=== PATIENT | female | born 2000 ===

== ENCOUNTER 2023-01-09 04:33 | Emergency (ER) | payer BC, MEDICAID ==
[~2023-01-09] VITALS: Ht 162.6 cm; Wt 86.2 kg
[2023-01-09 04:42] VITALS: BP 132/74
--- NOTE | 2023-01-09 04:56 | ED GU-Female ---
General Chief Complaint: Foreign Body Stated Complaint: CONDOM STUCK INSIDE VAGINA Nursing Triage Note: reports condom possibly lost in vagina [id number] Source: patient History of Present Illness Date Seen by Provider: Jan 09, 2023 Time Seen by Provider: 04:42 Initial Comments PT ARRIVES VIA POV FROM HOME WITH BOYFRIEND C/O LOST CONDOM IN VAGINA X 30 MINUTES NO PAIN NO BLEEDING PT IS 20 WEEKS PCP: HERMELINDA-K Allergies and Home Medications Allergies Coded Allergies: No Known Drug Allergies (Unverified , 01/09/23) Patient Home Medication List Home Medication List Reviewed: Yes No Active Prescriptions or Reported Meds Review of Systems Review of Systems Constitutional: no symptoms reported Genitourinary: see HPI : Yes Expected Date of Delivery: May 29, 2023 Past Yfdrolz-Nmatuj-Rifwmq Hx Patient Social History Tobacco Use?: Yes Tobacco type used: Cigarettes Use of E-Cig and/or Vaping dev: Yes E-Cig or Vaping type used: Nicotine Use of E-Cig and/or Vaping Balwinder: Current Everyday User Substance use?: Yes Substance type: Marijuana Substance frequency: Daily Alcohol Use?: Yes Alcohol Frequency: Once in a while Pt feels they are or have been: No Immunizations Up To Date First/Initial COVID19 Vaccinat: x2 Past Medical History Surgery/Hospitalization HX: denies Surgeries: No Respiratory: No Cardiac: No Neurological: No : Yes Expected Date of Delivery: May 29, 2023 Last Menstrual Period: Aug 22, 2022 Reproductive Disorders: No Genitourinary: No Gastrointestinal: No Musculoskeletal: No Endocrine: No HEENT: No Cancer: No Psychosocial: No Integumentary: No Blood Disorders: No Physical Exam Vital Signs Vital Signs - First Documented 01/09/23 04:42 Temp 36.4 Pulse 78 Resp 14 B/P (MAP) 132/74 (93) Pulse Ox 98 O2 Delivery Room Air Capillary Refill : Less Than 3 Seconds Height, Weight, BMI Height: '" Weight: lbs. oz. kg; 32.00 BMI Method: General Appearance: WD/WN, no apparent distress Gastrointestinal: soft, other (GRAVID UTERUS AT UMBILICUS) Pelvic: other (CONDOM IN VAGINAL CANAL EASILY REMOVED WITH LARGE COTTON SWAB. NO BLEEDING OR EVIDENCE OF TRAUMA. ) Neurologic/Psychiatric: no motor/sensory deficits, normal mood/affect Skin: normal color (PT IS ), warm/dry Progress/Results/Core Measures Suspected Sepsis SIRS Temperature: Pulse: 78 Respiratory Rate: 14 Blood Pressure 132 /74 Mean: 93 Results/Orders Vital Signs/I&O 01/09/23 04:42 Temp 36.4 Pulse 78 Resp 14 B/P (MAP) 132/74 (93) Pulse Ox 98 O2 Delivery Room Air Capillary Refill : Less Than 3 Seconds Blood Pressure Mean: 93 Progress Note : Progress Note FHR 147 Departure Impression Primary Impression: removal of retained condom Additional Impression: 20 weeks gestation of Disposition: 01 HOME, SELF-CARE Condition: Stable Departure-Patient Inst. Decision time for Depature: 04:55 Referrals: NO,LOCAL PHYSICIAN (PCP/Family) Primary Care Physician Patient Instructions: Vaginal Foreign Body Add. Discharge Instructions: FOLLOW UP WITH YOUR ROTARY DRILL OPERATOR SCHEDULED All discharge instructions reviewed with patient and/or family. Voiced understanding. Scripts No Active Prescriptions or Reported Meds ABIOLA HANSEN DO Jan 09, 2023 04:56
== END 2023-01-09 04:58 | disposition home or self-care (01) ==
LOC: EDUNIT# 04:33 → ER 04:41
DX: O9A.212 Injury, poisoning and certain other consequences of external causes complicating pregnancy, second trimester (principal); T19.2XXA Foreign body in vulva and vagina, initial encounter; O99.332 Smoking (tobacco) complicating pregnancy, second trimester; F17.210 Nicotine dependence, cigarettes, uncomplicated; Z3A.20 20 weeks gestation of pregnancy

== ENCOUNTER 2023-05-17 18:29 | Inpatient (IN) | payer BC, MEDICAID ==
[~2023-05-17] VITALS: Ht 162.5 cm; Wt 104.6 kg
[2023-05-17] VITALS (9 sets, daily range): BP systolic 119–145; BP diastolic 62–88
--- OUTSIDE RECORDS SUMMARY | 2023-05-17 18:31 | XMS REPORT ---
Author Author [facility] ter of [facility] ter of [facility] Address Unknown Phone Unavailable Care Team Providers Care Fuel Efficient Automobile Designer Name Role Phone LESLIE LOWRY Unavailable PROBLEMS Type Condition ICD9-CM Code [id number] Code Onset Dates Condition Status W/U Status Risk SNOMED Code Notes Problem care in second trimester Z34.92 confirmed ALLERGIES No Known Allergies ENCOUNTERS from 2000 to 2022-12-30 Encounter Location Date Provider Diagnosis [facility] [address] [facility] [id number] [address] Dec, LESLIE LOWRY Possible exposure to STD Z20.2 IMMUNIZATIONS Vaccine Route Administration Date Status PRIVATE TDAP (ADACEL) Unknown November 03, 2012 Admini stered prevnar pcv 7 (history) Unknown 2000 Ad ministered prevnar pcv 7 (history) Unknown 2000 Admi nistered PRIVATE HEP A (PEDS/ADOLESCE NT-2 DOSE) Unknown January 12, 2007 Administered 1st Dose HRSA MODERNA, COVID -19, 0.5mL IM Intramuscular September 17, 2020 Administered 2nd Dose HRSA MODERNA, COVID -19, 0.5mL IM Intramuscular October 15, 2020 Administered PRIVATE BEXSERO (MEN B) IM Intramuscular Jul 07, 2017 Administered PRIVATE MENINGOCOCCAL (MENACTRA) Unknown November 03, 2012 Administered PRIVATE DTAP (INFANRIX) Unknown 2000 Admi nistered PRIVATE VARICELLA Unknown January 12, 2007 Administe red PRIVATE VARICELLA Unknown October 29, 2005 Administer ed PRIVATE POLIO (IPV) Unknown 2000 Admini stered PRIVATE POLIO (IPV) Unknown 2000 Administ ered GARDASIL (HPV-3 DOSE) Unknown November 03, 2012 Admini stered PRIVATE MMR Unknown October 29, 2005 Administered PRIVATE MMR Unknown Jul 14, 2001 Administered PRIVATE HEP B (PEDS/ADOLESCE NT, 3-DOSE) Unknown 2000 Administered PRIVATE HEP B (PEDS/ADOLESCE NT, 3-DOSE) Unknown 2000 Administered PRIVATE HEP B (PEDS/ADOLESCE NT, 3-DOSE) Unknown 2000 Administered GARDASIL (HPV-3 DOSE) IM Intramuscular November 20, 2015 Ad ministered prevnar pcv 7 (history) Unknown 2000 Adm inistered PRIVATE MENINGOCOCCAL (MENVEO) IM Intramuscular October Administered hib (history) Unknown 2000 Administered GARDASIL (HPV-3 DOSE) Unknown May 03, 2015 Admini stered hib (history) Unknown 2000 Administered hib (history) Unknown 2000 Administered PRIVATE DTAP (INFANRIX) Unknown October 29, 2005 Admi nistered PRIVATE POLIO (IPV) Unknown Jul 14, 2001 Administ ered PRIVATE DTAP (INFANRIX) Unknown Aug 17, 2002 Admi nistered PRIVATE POLIO (IPV) Unknown October 29, 2005 Administ ered PRIVATE DTAP (INFANRIX) Unknown 2000 Adm inistered PRIVATE HEP A (PEDS/ADOLESCE NT-2 DOSE) Unknown November 03, 2012 Administered PRIVATE DTAP (INFANRIX) Unknown 2000 Ad ministered hib (history) Unknown Jul 14, 2001 Administered PRIVATE BEXSERO (MEN B) IM Intramuscular Jun 02, 2017 Administered FLUARIX QUAD (3 AND UP) 2017 IM Intramuscular Jun 02, 2017 Administered SOCIAL HISTORY Sex Assigned At : Social History Observation Description Sex Assigned At Unknown Alcohol Screen (Audit-C) Question Answer Notes Did you have a drink containing alcohol in the p ast year? No Points 0 Interpretation Negative Sexual History Question Answer Notes Had sex in the past 12 months (vaginal, oral, or anal)? Yes Last menstrual period 08/14/2022 Have you ever had a Sexually transmitted disease ? Yes Prevention strategies discussed: Condoms with Men only Use protection? No Other? Yes PHQ2 Question Answer Notes In the last 2 weeks, how oft en have you had little interest or pleasure in doing things? Not at all In the last 2 weeks, how oft en have you been feeling down, depressed, or hopeless? Not at all Total PHQ2 Score 0 REASON FOR REFERRAL No Information VITAL SIGNS Height 64 in Dec, Weight 190.6 lbs Dec, Weight-kg 86.45 kg Dec, Temperature 98.3 degrees Fahrenheit Dec, Heart Rate 87 bpm Dec, Respiratory Rate 18 bpm Dec, Oximetry 99 % Dec, BMI 32.71 kg/m2 Dec, Blood pressure systolic 115 mmHg Dec, Blood pressure diastolic 60 mmHg Dec, MEDICATIONS Medication SIG (Take, Route, Fr equency, Duration) Notes Start Date End Date Status 28-0.8 MG 1 tablet Orally Once a day Active PROCEDURES from 2000 to 2022-12-30 Procedure Date Ordered Date Performed Result Body Sit e ROUTINE VENIPUNCTURE 2021-01-20 2021-01-20 N/A REASON FOR VISIT STD check mild vaginal bleeding and burning sensation x 1 week after intercourse. Pt would like test. No symptoms at this time. ANJEL ELKINS MEDICAL (GENERAL) HISTORY Type Description Date Medical History fx toe in elementary school after kicking wall on accident Hospitalization History RSV 6 weeks old MENTAL STATUS No Information ASSESSMENTS Encounter Date Diagnosis Assessment Notes Treatment Notes Treatment Clinical Notes Dec, Possible exposure to STD (ICD-10 - Z20.2) PLAN OF TREATMENT Next Appt Details prn Reason: Provider Name:ANDER MULLEN, Thea 10:20:00 AM, [address] [place], [address], Provider Name:ANDER MULLEN, Thea 09:00:00 AM, [address] [place], [address], Insurance Providers Payer Name Payer Address Payer Phone Insured Name Patient Relationship to Insured Coverage Start Date Coverage End Date Subscriber Number Group Number BCBS OF [place] [address] [place] [id number] Billie White Natural Child - Insured has Financial Responsibility [id number] [place] [address] [address] [facility] [phone] Pratik White Self - patient is the insured [id number] MEDICATIONS ADMINISTERED Medication Instructions Date of Administration Dosag e BICILLIN LA/PENICILLIN G BENZATHINE 24 Ap r, 2015 [id number] U
--- OUTSIDE RECORDS SUMMARY | 2023-05-17 18:31 | XMS REPORT ---
Author Author [facility] ter of [facility] ter [facility] Address Unknown Phone Unavailable Care Team Providers Care First Officer Name Role Phone LESLIE LOWRY Unavailable PROBLEMS ALLERGIES No Known Allergies ENCOUNTERS from 2000 to 2023-01-03 IMMUNIZATIONS SOCIAL HISTORY No smoking Hx information available REASON FOR REFERRAL No Information MEDICATIONS REASON FOR VISIT MEDICAL (GENERAL) HISTORY MENTAL STATUS ASSESSMENTS PLAN OF TREATMENT Insurance Providers MEDICATIONS ADMINISTERED
--- OUTSIDE RECORDS SUMMARY | 2023-05-17 18:31 | XMS REPORT ---
Author Author [facility] ter of [facility] ter of [facility] Address Unknown Phone Unavailable Care Team Providers Care Tie Carrier Name Role Phone YU FOSTER Unavailable PROBLEMS Type Condition ICD9-CM Code [id number] Code Onset Dates Condition Status W/U Status Risk SNOMED Code Notes Problem Herpesviral infection, unspecified B00.9 confirmed [id number] No active lesions during pregnanc y ALLERGIES No Known Allergies ENCOUNTERS from 2000 to 2023-04-14 Encounter Location Date Provider Diagnosis [facility] [address] [facility] [id number] [address] Mar, YU FOSTER Stuffy and runny nose J34.89 IMMUNIZATIONS Vaccine Route Administration Date Status prevnar pcv 7 (history) Unknown 2000 Admi nistered PRIVATE HEP A (PEDS/ADOLESCE NT-2 DOSE) Unknown January 12, 2007 Administered PRIVATE VARICELLA Unknown January 12, 2007 Administe red PRIVATE VARICELLA Unknown October 29, 2005 Administer ed 1st Dose HRSA MODERNA, COVID -19, 0.5mL IM Intramuscular September 17, 2020 Administered PRIVATE MENINGOCOCCAL (MENACTRA) Unknown November 03, 2012 Administered PRIVATE TDAP (ADACEL) Unknown November 03, 2012 Admini stered prevnar pcv 7 (history) Unknown 2000 Ad ministered PRIVATE MENINGOCOCCAL (MENVEO) IM Intramuscular October Administered PRIVATE DTAP (INFANRIX) Unknown October 29, 2005 Admi nistered PRIVATE DTAP (INFANRIX) Unknown Aug 17, 2002 Admi nistered PRIVATE POLIO (IPV) Unknown October 29, 2005 Administ ered PRIVATE HEP A (PEDS/ADOLESCE NT-2 DOSE) Unknown November 03, 2012 Administered prevnar pcv 7 (history) Unknown 2000 Adm inistered hib (history) Unknown 2000 Administered hib (history) Unknown 2000 Administered hib (history) Unknown 2000 Administered hib (history) Unknown Jul 14, 2001 Administered 2nd Dose HRSA MODERNA, COVID -19, 0.5mL IM Intramuscular October 15, 2020 Administered PRIVATE DTAP (INFANRIX) Unknown 2000 Adm inistered GARDASIL (HPV-3 DOSE) Unknown November 03, 2012 Admini stered GARDASIL (HPV-3 DOSE) Unknown May 03, 2015 Admini stered PRIVATE MMR Unknown October 29, 2005 Administered GARDASIL (HPV-3 DOSE) IM Intramuscular November 20, 2015 Ad ministered PRIVATE MMR Unknown Jul 14, 2001 Administered PRIVATE TDAP (BOOSTRIX) IM Intramuscular Mar 11, 2023 Administered PRIVATE HEP B (PEDS/ADOLESCE NT, 3-DOSE) Unknown 2000 Administered PRIVATE FLU 23-24 (FLULAVAL) 6MO & UP IM Intramuscular Mar 11, 2023 Administered PRIVATE DTAP (INFANRIX) Unknown 2000 Ad ministered PRIVATE POLIO (IPV) Unknown Jul 14, 2001 Administ eregraham FLUARIX QUAD (3 AND UP) 2017 IM Intramuscular Jun 02, 2017 Administered PRIVATE POLIO (IPV) Unknown 2000 Admini steregraham PRIVATE BEXSERO (MEN B) IM Intramuscular Jun 02, 2017 Administered PRIVATE POLIO (IPV) Unknown 2000 Administ eregraham PRIVATE BEXSERO (MEN B) IM Intramuscular Jul 07, 2017 Administered PRIVATE HEP B (PEDS/ADOLESCE NT, 3-DOSE) Unknown 2000 Administered PRIVATE HEP B (PEDS/ADOLESCE NT, 3-DOSE) Unknown 2000 Administered PRIVATE DTAP (INFANRIX) Unknown 2000 Admi nistered SOCIAL HISTORY Sex Assigned At : Social [...] Score 0 REASON FOR REFERRAL No Information MEDICATIONS Medication SIG (Take, Route, Fr equency, Duration) Notes Start Date End Date Status 28-0.8 MG 1 tablet Orally Once a day Active Acyclovir 400 MG 1 tablet Orally Twic e a day for 30 days Mar, Active REASON FOR VISIT [id number] [id number] MEDICAL (GENERAL) HISTORY Type Description Date Medical History fx toe in elementary school after kicking wall on accident Hospitalization History RSV 6 weeks old MENTAL STATUS No Information ASSESSMENTS Encounter Date Diagnosis Assessment Notes Treatment Notes Treatment Clinical Notes Mar, Stuffy and runny nose (ICD-10 - J34.89) Mar, Other Patient was instructed to self-isolate at home until further instruction from clinic staff PLAN OF TREATMENT Medication Medication Name Sig Start Date Stop Date Acyclovir 400 MG 1 tablet Orally Twice a day for 30 da ys Mar, Next Appt Details Provider Name:ANDER MULLEN 2 02:00:00 PM, [address] [place], [address], Provider Name:ANDER MULLEN 11:00:00 AM, [address] [place], [address], Provider Name:ANDER MULLEN 11:00:00 AM, [address] [place], [address], Provider Name:ANDER MULLEN 2 10:40:00 AM, [address] [place], [address], Provider Name:ANDER MULLEN 2 02:00:00 PM, [address] [place], [address], Insurance Providers Payer Name Payer Address Payer Phone Insured Name Patient Relationship to Insured Coverage Start Date Coverage End Date Subscriber Number Group Number [employer] OF [place] [id number] [place] [id number] Billie White Natural Child - Insured has Financial Responsibility [id number] [place] [address] [address] [facility] [phone] Pratik White Self - patient is the insured [id number] MEDICATIONS ADMINISTERED Medication Instructions Date of Administration Dosag e BICILLIN LA/PENICILLIN G BENZATHINE 24 Ap r, 2016 [id number] U
[2023-05-17] MEDS ORDERED: MINERAL OIL 30 ML UDC TOP PRN (19:00)
[2023-05-17] MEDS ORDERED: LACTATED RINGERS 1,000 ML 500 ML IV PRN (19:00)
[2023-05-17 19:39] LABS: BASOPHILS # (AUTO) 0.1 10^3/uL (0.0-0.1); BASOPHILS % (AUTO) 1 % (0-10); EOSINOPHILS # (AUTO) 0.1 10^3/uL (0.0-0.3); EOSINOPHILS % (AUTO) 1 % (0-10); HEMATOCRIT 40 % (35-52); HEMOGLOBIN 13.7 g/dL (11.5-16.0); LYMPHOCYTES # (AUTO) 1.8 10^3/uL (1.0-4.0); LYMPHOCYTES % (AUTO) 10 % (12-44); MEAN CORPUSCULAR HEMOGLOBIN 32 pg (25-34); MEAN CORPUSCULAR HGB CONC 35 g/dL (32-36); MEAN CORPUSCULAR VOLUME 94 fL (80-99); MEAN PLATELET VOLUME 10.5 fL (9.0-12.2); MONOCYTES # (AUTO) 1.4 10^3/uL (0.0-1.0); MONOCYTES % (AUTO) 8 % (0-12); NEUTROPHILS # (AUTO) 13.2 10^3/uL (1.8-7.8); NEUTROPHILS % (AUTO) 76 % (42-75); PLATELET COUNT 242 10^3/uL (130-400); WHITE BLOOD COUNT 17.2 10^3/uL (4.3-11.0)
[2023-05-17] MEDS ORDERED: NS IV 1000 ML 0 ML ONE (19:52)
[2023-05-17] MEDS ORDERED: LACTATED RINGERS 1,000 ML 1,000 ML IV ONE (19:54)
[2023-05-17] MEDS ORDERED: LACTATED RINGERS 1,000 ML 1,000 ML IV SCH (20:15)
[2023-05-17] MEDS ORDERED: TERBUTALINE INJ 1 MG/ML (BRETHINE) AMP SC PRN (20:15)
[2023-05-17 20:20] LABS: LYMPHOCYTES % (MANUAL) 14 %; MONOCYTES % (MANUAL) 9 %; NEUTROPHILS % (MANUAL) 76 %
[2023-05-17 20:21] LABS: BURR CELLS SLIGHT; EOSINOPHILS % (MANUAL) 1 %
[2023-05-17] MEDS: D5 LR 1,000 ML IV SOLN 1,000 ML IV SCH (20:42)
[2023-05-17] MEDS ORDERED: BUTORPHANOL INJ 2 MG/ML VIAL IV PRN (21:15)
[2023-05-17] MEDS ORDERED: ACYC400T21 PO (23:42)
[2023-05-17] MEDS ORDERED: PNV-9 PO (23:43)
[2023-05-18] VITALS (107 sets, daily range): BP systolic 81–153; BP diastolic 46–82
[2023-05-18] MEDS: D5 LR 1,000 ML IV SOLN 1,000 ML IV SCH ×3 (04:27→20:10)
[2023-05-18] MEDS ORDERED: fentaNYL 2 mcg/ml BUPIVA 0.125 100 ML ONE (09:07)
[2023-05-18] MEDS ORDERED: fentaNYL INJECTION 100 MCG/2 ML VIAL ONE (10:14)
[2023-05-18] MEDS ORDERED: BUPIVACAINE 0.25% 10 ML VIAL ONE (10:15)
[2023-05-18] MEDS ORDERED: NALOXONE 0.4 MG/ML 1 ML VIAL IV PRN ×2 (10:45→23:45)
[2023-05-18] MEDS ORDERED: diphenhydrAMINE INJ 50 MG/ML VIAL IV PRN (10:45)
[2023-05-18] MEDS ORDERED: LACTATED RINGERS 1,000 ML 1,000 ML IV SCH (10:45)
--- NOTE | 2023-05-18 10:51 | History & Physical-OB ---
OB - Chief Complaint & HPI Date/Time Date of Admission: Date of Admission: May 17, 2023 at 18:29 Date seen by a Provider: May 18, 2023 Time Seen by a Provider: 08:30 Chief Complaint/History OB-Reason for Admission/Chief: Induction of Labor Hx : 1 Hx Para: 0 Expected Date of Delivery: May 21, 2023 Gestational Age in Weeks: 39 Gestational Age in Days: 3 History of Labs O+, Ab neg, Rub Imm HIV/RPR/HepB/C NR Normal 1 hr GTT GBS Neg Allergies and Home Medications Allergies Coded Allergies: No Known Drug Allergies (Unverified , 01/09/23) Patient Home Medication List Home Medication List Reviewed: Yes Acyclovir (Acyclovir) 400 Mg Tablet, 400 MG PO BID, (Reported) Entered as Reported by: BATOOL ÁLVAREZ on 05/17/232341 Last Action: New Order Pnv 119/Iron Fum/Folic Acid ( 19 Tablet) 29 Mg Iron-1 Mg Tablet, 1 EACH PO DAILY, (Reported) Entered as Reported by: BATOOL ÁLVAREZ on 05/17/232342 Last Action: New Order OB - History Hx of Present Ultrasounds: Normal mid trimester US Obstetrical Complications: None Medical Complications: None Obstetrical History Hx : 1 Patient Past Medical History N/A Social History/Family History Alcohol Use: Denies Use Recreational Drug Use: No Smoking Cessation: Never smoker Immunizations Influenza Vaccine Up-to-Date: Yes; Up-to-Date First/Initial COVID19 Vaccine: x2 Tetanus Booster (TDap): Less than 5yrs Rubella: immune RPR/VDRL: Negative GBS Status: Negative HBsAG: Negative OB - Admission Exam Physical Exam Vitals: Vital Signs 05/18/23 05/18/23 04:57 07:25 Temp 37.3 Pulse 86 Resp 18 B/P (MAP) 121/66 (84) Pulse Ox 99 O2 Delivery Room Air HEENT: NCAT Heart: Rhythm Normal Lungs: Clear Abdomen: Gravid Cervical Dilatation: 4cm Effacement: 75% Station: -1 Membranes: Intact Heart Rate: 140's Accelerations: Accelerations Present Decelerations: No Decelerations Short Term Variability: Present Detention Variability: Average (6-25) Contractions on Admission: 6-10 Minutes Apart Intensity: Moderate Lyon Scoring Tool (Modified) Dilation (cm): 1-2cm (1) Effacement (%): 51-79% (2) Descent/Station: -2 (1) Cervix Consistency: Medium(1) Cervix Position: Middle/Mid-Position (1) Lyon Score: 6 Labs Laboratory Tests Test 05/17/23 19:20 Range/Units White Blood Count 17.2 H 4.3-11.0 10^3/uL Red Blood Count 4.23 3.80-5.11 10^6/uL Hemoglobin 13.7 11.5-16.0 g/dL Hematocrit 40 35-52 % Mean Corpuscular Volume 94 80-99 fL Mean Corpuscular Hemoglobin 32 25-34 pg Mean Corpuscular Hemoglobin Concent 35 32-36 g/dL Red Cell Distribution Width 14.6 H 10.0-14.5 % Platelet Count 242 130-400 10^3/uL Mean Platelet Volume 10.5 9.0-12.2 fL Immature Granulocyte % (Auto) 4 % Neutrophils (%) (Auto) 76 H 42-75 % Lymphocytes (%) (Auto) 10 L 12-44 % Monocytes (%) (Auto) 8 0-12 % Eosinophils (%) (Auto) 1 0-10 % Basophils (%) (Auto) 1 0-10 % Neutrophils # (Auto) 13.2 H 1.8-7.8 10^3/uL Lymphocytes # (Auto) 1.8 1.0-4.0 10^3/uL Monocytes # (Auto) 1.4 H 0.0-1.0 10^3/uL Eosinophils # (Auto) 0.1 0.0-0.3 10^3/uL Basophils # (Auto) 0.1 0.0-0.1 10^3/uL Immature Granulocyte # (Auto) 0.7 H 0.0-0.1 10^3/uL Neutrophils % (Manual) 76 % Lymphocytes % (Manual) 14 % Monocytes % (Manual) 9 % Eosinophils % (Manual) 1 % Macrocytosis SLIGHT Rishi Cells SLIGHT Syphilis Total Antibody Negative Negative OB - Assessment/Plan/Diagnosis Assessment Assessment: induction of labor Admission Dx Third Trimester 39 week gestation Obesity in Admission Status: Inpatient Order (span 2 midnights) Reason for Inpatient Admission: Labor and post care Plan Other Plan 22 yo @ 39.3 wga here for elective IOL Plan - Risks vs Benefits discussed with patient in office and upon arrival and pa darius would like to proceed with elective IOL - GBS neg - Cytotec IOL - AROM this AM 0830 clear /-1 ANDER MULLEN MD May 18, 2023 10:51
[2023-05-18] MEDS ORDERED: OXYTOCIN DRIP PRE-MIX 500 ML IV SCH (12:45)
[2023-05-18] MEDS: fentaNYL 2 mcg/ml BUPIVA 0.125 100 ML EPI SCH ×2 (17:57→19:10)
--- NOTE | 2023-05-18 19:22 | Labor Progress Note ---
Labor Progress Note Labor Progress Note Date Seen by Provider: May 18, 2023 Time Seen by Provider: 19:20 Subjective: Pt denies complaints. Epidural in place with good pain control Objective: /-1 Ruptured, clear fluid Reactive FHT Assessment/Plan: Adela White is a (22 /Para 1 / 0,Gestational Age (wks)39.3 here for elective IOL. CEFM/TOCO Continue pitocin protocol Anesthesia: Epidural in place Anticipate vaginal delivery. Vitals - Labs Vital Signs - I&O Vital Signs Date Time Temp Pulse Resp B/P (MAP) Pulse Ox O2 Delivery O2 Flow Rate FiO2 05/18/23 18:55 95 18 126/58 (80) 97 Room Air 05/18/23 18:40 36.9 80 18 118/59 (78) 98 Room Air 05/18/23 18:25 83 18 111/61 (78) 97 Room Air 05/18/23 18:10 88 18 123/58 (79) 98 Room Air 05/18/23 17:55 93 18 113/59 (77) 98 Room Air 05/18/23 17:42 117 18 129/64 (85) 99 Room Air 05/18/23 17:25 85 18 116/68 (84) 98 Room Air 05/18/23 17:10 87 18 116/55 (75) 98 Room Air 05/18/23 16:54 79 18 118/59 (78) 97 Room Air 05/18/23 16:38 73 18 117/59 (78) 98 Room Air 05/18/23 16:23 83 18 126/65 (85) 98 Room Air 05/18/23 16:15 75 18 115/58 (77) 99 Room Air 05/18/23 16:10 72 18 116/59 (78) 99 Room Air 05/18/23 16:05 77 18 121/63 (82) 99 Room Air 05/18/23 16:00 79 18 122/63 (82) 99 Room Air 05/18/23 15:55 85 18 119/59 (79) 99 Room Air 05/18/23 15:45 36.9 76 18 111/55 (73) 98 Room Air 05/18/23 15:30 75 18 101/56 (71) 98 Room Air 05/18/23 15:15 75 18 109/59 (76) 99 Room Air 05/18/23 15:00 75 18 105/55 (72) 99 Room Air 05/18/23 14:45 67 18 99/55 (70) 97 Room Air 05/18/23 14:30 68 18 103/52 (69) 99 Room Air 05/18/23 14:15 37.1 71 18 97/53 (68) 99 Room Air 05/18/23 14:00 70 18 98/52 (67) 99 Room Air 05/18/23 13:45 69 18 102/53 (69) 98 Room Air 05/18/23 13:30 74 18 116/60 (78) 99 Room Air 05/18/23 13:15 75 18 115/58 (77) 99 Room Air 05/18/23 13:00 82 18 122/64 (83) 99 Room Air 05/18/23 12:56 78 18 123/58 (79) 98 Room Air 05/18/23 12:52 75 18 114/58 (76) 98 Room Air 05/18/23 12:48 72 18 114/58 (76) 98 Room Air 05/18/23 12:44 74 18 117/57 (77) 98 Room Air 05/18/23 12:40 72 18 112/58 (76) 98 Room Air 05/18/23 12:36 71 18 116/60 (78) 99 Room Air 05/18/23 12:32 37.0 81 18 118/60 (79) 99 Room Air 05/18/23 12:28 74 18 115/55 (75) 99 Room Air 05/18/23 12:24 81 18 112/57 (75) 99 Room Air 05/18/23 12:20 80 18 110/57 (74) 99 Room Air 05/18/23 12:15 72 18 115/56 (75) 98 Room Air 05/18/23 12:11 76 18 121/56 (77) 98 Room Air 05/18/23 12:04 70 18 106/56 (73) 97 Room Air 05/18/23 12:00 78 18 107/58 (74) 97 Room Air 05/18/23 11:56 100 18 113/58 (76) 98 Room Air 05/18/23 11:52 78 18 107/58 (74) 98 Room Air 05/18/23 11:48 88 18 107/59 (75) 96 Room Air 05/18/23 11:44 75 18 104/58 (73) 96 Room Air 05/18/23 11:40 36.9 73 18 99/56 (70) 98 Room Air 05/18/23 11:36 78 18 106/55 (72) 98 Room Air 05/18/23 11:32 60 18 81/46 (58) 94 Room Air 05/18/23 11:28 90 18 107/62 (77) 98 Room Air 05/18/23 11:24 86 18 94/50 (65) 98 Room Air 05/18/23 11:20 81 18 104/58 (73) 96 Room Air 05/18/23 11:16 87 18 90/53 (65) 94 Room Air 05/18/23 11:12 84 18 98/56 (70) 97 Room Air 05/18/23 11:08 92 18 97/54 (68) 96 Room Air 05/18/23 11:04 87 18 100/54 (69) 96 Room Air 05/18/23 11:00 82 18 94/55 (68) 98 Room Air 05/18/23 10:56 104 18 127/69 (88) 98 Room Air 05/18/23 10:52 95 18 118/59 (78) 98 Room Air 05/18/23 10:48 93 18 123/61 (81) 98 Room Air 05/18/23 10:44 36.6 90 18 120/60 (80) 99 Room Air 05/18/23 10:40 110 18 133/71 (91) 99 Room Air 05/18/23 10:36 99 18 123/68 (86) 99 Room Air 05/18/23 10:32 96 18 123/70 (87) 99 Room Air 05/18/23 10:28 101 18 125/68 (87) 99 Room Air 05/18/23 10:23 95 18 130/72 (91) 100 Room Air 05/18/23 10:18 96 18 134/70 (91) Room Air 05/18/23 10:04 85 18 110/69 (83) Room Air 05/18/23 09:47 89 18 115/66 (82) 99 Room Air 05/18/23 09:32 82 18 122/72 (89) 99 Room Air 05/18/23 09:16 88 18 128/64 (85) 99 Room Air 05/18/23 08:55 88 18 118/66 (83) 99 Room Air 05/18/23 08:25 96 18 120/67 (84) 99 Room Air 05/18/23 08:00 98 18 119/59 (79) 98 Room Air 05/18/23 07:25 86 18 121/66 (84) 99 Room Air 05/18/23 06:56 92 18 124/62 (82) 97 Room Air 05/18/23 06:26 87 18 120/67 (84) 96 Room Air 05/18/23 05:56 79 18 103/53 (70) 98 Room Air 05/18/23 05:26 79 18 108/51 (70) 98 Room Air 05/18/23 04:57 37.3 81 18 121/60 (80) 99 Room Air 05/18/23 04:29 37.3 83 18 122/70 (87) 98 Room Air 05/18/23 03:56 74 18 101/51 (68) 98 Room Air 05/18/23 03:26 75 18 98/57 (71) 97 Room Air 05/18/23 02:56 94 18 109/64 (79) 99 Room Air 05/18/23 02:25 85 18 122/60 (80) 97 Room Air 05/18/23 01:57 91 18 121/67 (85) 98 Room Air 05/18/23 01:27 88 18 118/66 (83) 99 Room Air 05/18/23 00:55 36.2 94 18 132/67 (88) 99 Room Air 05/18/23 00:27 93 18 119/67 (84) 98 Room Air 05/17/23 23:56 100 18 124/64 (84) 98 Room Air 05/17/23 23:27 96 18 119/62 (81) Room Air 05/17/23 22:57 94 18 124/65 (84) Room Air 05/17/23 22:27 37.4 93 18 119/66 (83) 98 Room Air 05/17/23 21:57 92 18 122/65 (84) 99 Room Air 05/17/23 21:25 99 18 137/63 (87) 97 Room Air 05/17/23 20:56 96 18 145/88 (107) 99 Room Air 05/17/23 20:04 36.1 91 18 124/79 (94) 98 Room Air I & O 05/18/23 06:59 Intake Total 2000 ml Balance 2000 ml ANDER MULLEN MD May 18, 2023 19:21
[2023-05-18] MEDS ORDERED: ACETAMINOPHEN 500 MG TABLET ONE (20:19)
[2023-05-18] MEDS: ONDANSETRON INJECTION 4 MG/2 ML (SDV) IV PRN (20:24)
[2023-05-18] MEDS ORDERED: ACETAMINOPHEN 500 MG TABLET PO ONE (20:30)
[2023-05-18] MEDS: CATHETER FLUSH 10 ML SYR IV SCH (22:11)
[2023-05-18] MEDS ORDERED: LIDOCAINE 2% w/EPI 1:200,000 20 ML VIAL INJ PRN (23:00)
[2023-05-18] MEDS ORDERED: LIDOCAINE 2% w/EPI 1:200,000 20 ML VIAL ONE (23:01)
[2023-05-18] MEDS ORDERED: [UNRECOGNIZED DRUG - OTHER] IV ONE (23:02)
[2023-05-18] MEDS ORDERED: METHYLERGONOVINE INJ 0.2 MG/ML AMP ONE (23:02)
[2023-05-18] MEDS: OXYTOCIN DRIP PRE-MIX 500 ML IV SCH ×2 (23:33→23:57)
[2023-05-18] MEDS ORDERED: METHYLERGONOVINE INJ 0.2 MG/ML AMP IM ONE (23:45)
[2023-05-19] MEDS ORDERED: WITCH HAZEL(TUCKS) 40 EA JAR TOP PRN
[2023-05-19] MEDS ORDERED: Tetanus/Diphtheria/Pertussis (Acell) ADULT Vaccine 0.5 ML IM ONE
[2023-05-19] MEDS ORDERED: ACETAMINOPHEN 500 MG TABLET PO SCH
[2023-05-19] MEDS ORDERED: BENZOCAINE/MENTHOL (DERMOPLAST) 56 ML CAN TP PRN
[2023-05-19] MEDS ORDERED: MEASLES, MUMPS, RUBELLA VACCINE (MMR) SQ ONE
[2023-05-19 00:08] VITALS: BP 115/77
--- NOTE | 2023-05-19 00:17 | OB Labor & Delivery Record ---
Vag Delivery Note Vag Delivery Note Date of Delivery: 05/19/23 Preoperative Diagnosis: Adela White is a (22 /Para 1 / 0, Gestational Age (wks)39.3 wga here for elective IOL Postoperative Diagnosis: Same Attending Surgeon/Physician: Ander Jeronimo MD Aircraft Engine Technician: None Anesthesia: Epidural Delivery Type: @ 2327 Findings: Viable female infant, apgars 8/9, weight [] Lacerations: 2nd degree perineal laceration Intact placenta with 3 vessel cord. No nuchal cord, body cord or shoulder dystocia Estimated Blood Loss: 200 ml Complications: None Condition: Stable Description of Procedure: The patient is a 22 year old female who presented for elective IOL. She was admitted and informed consent was obtained. Her labor course was remarkable pitocin augmentation. She progressed to complete dilatation and began to push. She was then set up for delivery. The 's head was delivered atraumatically in the JOE position. The shoulders and remainder of the 's body were then delivered without difficulty. Upon delivery, the infant was vigorous and placed on maternal chest and the mouth and nares were bulb suctioned. After a 3 min delay cord was doubly clamped and cut by FOB and the infant remained on maternal chest. An intact placenta with 3-vessel cord delivered via Rani and there was found to be minimal bleeding.~ Vigorous fundal massage was performed and the fundus was found to be firm. IV oxytocin was given. Examination of the vagina and perineum revealed a 2nd degree laceration repaired in the usual fashion with 3-0 vicryl rapide suture. Following the repair, sponge, instrument and needle counts were correct. Mom and baby were both in stable condition in the labor suite. Vitals - Labs Vital Signs - I&O Vital Signs Date Time Temp Pulse Resp B/P (MAP) Pulse Ox O2 Delivery O2 Flow Rate FiO2 05/18/23 22:26 36.6 79 20 127/67 (87) 98 Room Air 05/18/23 22:11 70 116/57 (76) 05/18/23 21:56 71 122/57 (78) 05/18/23 21:40 36.8 79 18 117/64 (81) 05/18/23 21:23 71 101/55 (70) 05/18/23 21:10 75 113/52 (72) 05/18/23 20:40 93 133/63 (86) 05/18/23 20:24 96 153/65 (94) Room Air 05/18/23 20:10 75 125/57 (79) Room Air 05/18/23 19:54 91 119/65 (83) Room Air 05/18/23 19:39 37.0 106 20 119/72 (88) Room Air 05/18/23 19:34 95 118/72 (87) Room Air 05/18/23 19:09 84 121/58 (79) 97 05/18/23 18:55 95 18 126/58 (80) 97 Room Air 05/18/23 18:40 36.9 80 18 118/59 (78) 98 Room Air 05/18/23 18:25 83 18 111/61 (78) 97 Room Air 05/18/23 18:10 88 18 123/58 (79) 98 Room Air 05/18/23 17:55 93 18 113/59 (77) 98 Room Air 05/18/23 17:42 117 18 129/64 (85) 99 Room Air 05/18/23 17:25 85 18 116/68 (84) 98 Room Air 05/18/23 17:10 87 18 116/55 (75) 98 Room Air 05/18/23 16:54 79 18 118/59 (78) 97 Room Air 05/18/23 16:38 73 18 117/59 (78) 98 Room Air 05/18/23 16:23 83 18 126/65 (85) 98 Room Air 05/18/23 16:15 75 18 115/58 (77) 99 Room Air 05/18/23 16:10 72 18 116/59 (78) 99 Room Air 05/18/23 16:05 77 18 121/63 (82) 99 Room Air 05/18/23 16:00 79 18 122/63 (82) 99 Room Air 05/18/23 15:55 85 18 119/59 (79) 99 Room Air 05/18/23 15:45 36.9 76 18 111/55 (73) 98 Room Air 05/18/23 15:30 75 18 101/56 (71) 98 Room Air 05/18/23 15:15 75 18 109/59 (76) 99 Room Air 05/18/23 15:00 75 18 105/55 (72) 99 Room Air 05/18/23 14:45 67 18 99/55 (70) 97 Room Air 05/18/23 14:30 68 18 103/52 (69) 99 Room Air 05/18/23 14:15 37.1 71 18 97/53 (68) 99 Room Air 05/18/23 14:00 70 18 98/52 (67) 99 Room Air 05/18/23 13:45 69 18 102/53 (69) 98 Room Air 05/18/23 13:30 74 18 116/60 (78) 99 Room Air 05/18/23 13:15 75 18 115/58 (77) 99 Room Air 05/18/23 13:00 82 18 122/64 (83) 99 Room Air 05/18/23 12:56 78 18 123/58 (79) 98 Room Air 05/18/23 12:52 75 18 114/58 (76) 98 Room Air 05/18/23 12:48 72 18 114/58 (76) 98 Room Air 05/18/23 12:44 74 18 117/57 (77) 98 Room Air 05/18/23 12:40 72 18 112/58 (76) 98 Room Air 05/18/23 12:36 71 18 116/60 (78) 99 Room Air 05/18/23 12:32 37.0 81 18 118/60 (79) 99 Room Air 05/18/23 12:28 74 18 115/55 (75) 99 Room Air 05/18/23 12:24 81 18 112/57 (75) 99 Room Air 05/18/23 12:20 80 18 110/57 (74) 99 Room Air 05/18/23 12:15 72 18 115/56 (75) 98 Room Air 05/18/23 12:11 76 18 121/56 (77) 98 Room Air 05/18/23 12:04 70 18 106/56 (73) 97 Room Air 05/18/23 12:00 78 18 107/58 (74) 97 Room Air 05/18/23 11:56 100 18 113/58 (76) 98 Room Air 05/18/23 11:52 78 18 107/58 (74) 98 Room Air 05/18/23 11:48 88 18 107/59 (75) 96 Room Air 05/18/23 11:44 75 18 104/58 (73) 96 Room Air 05/18/23 11:40 36.9 73 18 99/56 (70) 98 Room Air 05/18/23 11:36 78 18 106/55 (72) 98 Room Air 05/18/23 11:32 60 18 81/46 (58) 94 Room Air 05/18/23 11:28 90 18 107/62 (77) 98 Room Air 05/18/23 11:24 86 18 94/50 (65) 98 Room Air 05/18/23 11:20 81 18 104/58 (73) 96 Room Air 05/18/23 11:16 87 18 90/53 (65) 94 Room Air 05/18/23 11:12 84 18 98/56 (70) 97 Room Air 05/18/23 11:08 92 18 97/54 (68) 96 Room Air 05/18/23 11:04 87 18 100/54 (69) 96 Room Air 05/18/23 11:00 82 18 94/55 (68) 98 Room Air 05/18/23 10:56 104 18 127/69 (88) 98 Room Air 05/18/23 10:52 95 18 118/59 (78) 98 Room Air 05/18/23 10:48 93 18 123/61 (81) 98 Room Air 05/18/23 10:44 36.6 90 18 120/60 (80) 99 Room Air 05/18/23 10:40 110 18 133/71 (91) 99 Room Air 05/18/23 10:36 99 18 123/68 (86) 99 Room Air 05/18/23 10:32 96 18 123/70 (87) 99 Room Air 05/18/23 10:28 101 18 125/68 (87) 99 Room Air 05/18/23 10:23 95 18 130/72 (91) 100 Room Air 05/18/23 10:18 96 18 134/70 (91) Room Air 05/18/23 10:04 85 18 110/69 (83) Room Air 05/18/23 09:47 89 18 115/66 (82) 99 Room Air 05/18/23 09:32 82 18 122/72 (89) 99 Room Air 05/18/23 09:16 88 18 128/64 (85) 99 Room Air 05/18/23 08:55 88 18 118/66 (83) 99 Room Air 05/18/23 08:25 96 18 120/67 (84) 99 Room Air 05/18/23 08:00 98 18 119/59 (79) 98 Room Air 05/18/23 07:25 86 18 121/66 (84) 99 Room Air 05/18/23 06:56 92 18 124/62 (82) 97 Room Air 05/18/23 06:26 87 18 120/67 (84) 96 Room Air 05/18/23 05:56 79 18 103/53 (70) 98 Room Air 05/18/23 05:26 79 18 108/51 (70) 98 Room Air 05/18/23 04:57 37.3 81 18 121/60 (80) 99 Room Air 05/18/23 04:29 37.3 83 18 122/70 (87) 98 Room Air 05/18/23 03:56 74 18 101/51 (68) 98 Room Air 05/18/23 03:26 75 18 98/57 (71) 97 Room Air 05/18/23 02:56 94 18 109/64 (79) 99 Room Air 05/18/23 02:25 85 18 122/60 (80) 97 Room Air 05/18/23 01:57 91 18 121/67 (85) 98 Room Air 05/18/23 01:27 88 18 118/66 (83) 99 Room Air 05/18/23 00:55 36.2 94 18 132/67 (88) 99 Room Air 05/18/23 00:27 93 18 119/67 (84) 98 Room Air I & O 05/19/23 06:59 Intake Total 2975 ml Balance 2975 ml ANDER JERONIMO MD May 19, 2023 00:17
[2023-05-19 00:23] VITALS: BP 143/80
[2023-05-19] MEDS ORDERED: OXYTOCIN DRIP PRE-MIX 500 ML IV ONE (00:30)
[2023-05-19] MEDS: IBUPROFEN 600 MG TABLET PO SCH ×2 (00:35→10:53)
[2023-05-19] MEDS: ONDANSETRON INJECTION 4 MG/2 ML (SDV) IV PRN (00:35)
[2023-05-19 00:38] VITALS: BP 123/61
[2023-05-19 01:09] VITALS: BP 124/63
[2023-05-19 02:36] VITALS: BP 138/62
[2023-05-19] MEDS: ACETAMINOPHEN 500 MG TABLET PO SCH ×2 (02:37→10:53)
[2023-05-19] MEDS ORDERED: CATHETER FLUSH 10 ML SYR IV SCH (06:00)
[2023-05-19 06:37] LABS: BASOPHILS # (AUTO) 0.1 10^3/uL (0.0-0.1); BASOPHILS % (AUTO) 0 % (0-10); EOSINOPHILS % (AUTO) 0 % (0-10); HEMATOCRIT 35 % (35-52); HEMOGLOBIN 12.3 g/dL (11.5-16.0); LYMPHOCYTES # (AUTO) 1.2 10^3/uL (1.0-4.0); LYMPHOCYTES % (AUTO) 5 % (12-44); MEAN CORPUSCULAR HEMOGLOBIN 32 pg (25-34); MEAN CORPUSCULAR HGB CONC 35 g/dL (32-36); MEAN CORPUSCULAR VOLUME 92 fL (80-99); MEAN PLATELET VOLUME 10.4 fL (9.0-12.2); MONOCYTES # (AUTO) 2.1 10^3/uL (0.0-1.0); MONOCYTES % (AUTO) 9 % (0-12); NEUTROPHILS # (AUTO) 19.7 10^3/uL (1.8-7.8); NEUTROPHILS % (AUTO) 84 % (42-75); PLATELET COUNT 203 10^3/uL (130-400); WHITE BLOOD COUNT 23.4 10^3/uL (4.3-11.0)
[2023-05-19] MEDS ORDERED: PRENATAL VITAMIN TABLET PO SCH (07:00)
--- NOTE | 2023-05-19 08:56 | Postpartum Progress Note ---
Note Note Day # 1 Subjective: Patient is without complaints. Ambulating, voiding. Tolerating a regular diet without nausea or vomiting. Normal lochia. Pain is well controlled with oral pain medications. Bottle feeding, baby currently NPO due to medical condition. Objective: Physical Exam: General - Alert and oriented, no apparent distress Abdomen - Soft, appropriately tender to palpation, non-distended, fundus firm at umbilicus Extremities - no edema, negative Claude's bilaterally Assessment: 22 yo G1 now P1 post- day # 1, status post spontaneous uncomplicated vaginal delivery @ 39 weeks Recovering well, hemodynamically stable Plan: Routine care. Encourage ambulation. Ferrous sulfate supplementation. Plan for discharge today to be with NICU Vitals - Labs Vital Signs - I&O Vital Signs Date Time Temp Pulse Resp B/P (MAP) Pulse Ox O2 Delivery O2 Flow Rate FiO2 05/19/23 02:36 37.4 95 20 138/62 (87) 97 Room Air 05/19/23 01:09 90 124/63 (83) 05/19/23 00:38 85 123/61 (81) 05/19/23 00:23 118 143/80 (101) 05/19/23 00:08 110 115/77 (90) 05/18/23 23:53 100 20 130/67 (88) 99 Room Air 05/18/23 23:38 121 121/56 (77) 05/18/23 23:24 129 146/82 (103) 100 Room Air 05/18/23 23:10 125 20 142/82 (102) 100 Room Air 05/18/23 22:40 75 126/68 (87) 05/18/23 22:26 36.6 79 20 127/67 (87) 98 Room Air 05/18/23 22:11 70 116/57 (76) 05/18/23 21:56 71 122/57 (78) 05/18/23 21:40 36.8 79 18 117/64 (81) 05/18/23 21:23 71 101/55 (70) 05/18/23 21:10 75 113/52 (72) 05/18/23 20:40 93 133/63 (86) 05/18/23 20:24 96 153/65 (94) Room Air 05/18/23 20:10 75 125/57 (79) Room Air 05/18/23 19:54 91 119/65 (83) Room Air 05/18/23 19:39 37.0 106 20 119/72 (88) Room Air 05/18/23 19:34 95 118/72 (87) Room Air 05/18/23 19:09 84 121/58 (79) 97 05/18/23 18:55 95 18 126/58 (80) 97 Room Air 05/18/23 18:40 36.9 80 18 118/59 (78) 98 Room Air 05/18/23 18:25 83 18 111/61 (78) 97 Room Air 05/18/23 18:10 88 18 123/58 (79) 98 Room Air 05/18/23 17:55 93 18 113/59 (77) 98 Room Air 05/18/23 17:42 117 18 129/64 (85) 99 Room Air 05/18/23 17:25 85 18 116/68 (84) 98 Room Air 05/18/23 17:10 87 18 116/55 (75) 98 Room Air 05/18/23 16:54 79 18 118/59 (78) 97 Room Air 05/18/23 16:38 73 18 117/59 (78) 98 Room Air 05/18/23 16:23 83 18 126/65 (85) 98 Room Air 05/18/23 16:15 75 18 115/58 (77) 99 Room Air 05/18/23 16:10 72 18 116/59 (78) 99 Room Air 05/18/23 16:05 77 18 121/63 (82) 99 Room Air 05/18/23 16:00 79 18 122/63 (82) 99 Room Air 05/18/23 15:55 85 18 119/59 (79) 99 Room Air 05/18/23 15:45 36.9 76 18 111/55 (73) 98 Room Air 05/18/23 15:30 75 18 101/56 (71) 98 Room Air 05/18/23 15:15 75 18 109/59 (76) 99 Room Air 05/18/23 15:00 75 18 105/55 (72) 99 Room Air 05/18/23 14:45 67 18 99/55 (70) 97 Room Air 05/18/23 14:30 68 18 103/52 (69) 99 Room Air 05/18/23 14:15 37.1 71 18 97/53 (68) 99 Room Air 05/18/23 14:00 70 18 98/52 (67) 99 Room Air 05/18/23 13:45 69 18 102/53 (69) 98 Room Air 05/18/23 13:30 74 18 116/60 (78) 99 Room Air 05/18/23 13:15 75 18 115/58 (77) 99 Room Air 05/18/23 13:00 82 18 122/64 (83) 99 Room Air 05/18/23 12:56 78 18 123/58 (79) 98 Room Air 05/18/23 12:52 75 18 114/58 (76) 98 Room Air 05/18/23 12:48 72 18 114/58 (76) 98 Room Air 05/18/23 12:44 74 18 117/57 (77) 98 Room Air 05/18/23 12:40 72 18 112/58 (76) 98 Room Air 05/18/23 12:36 71 18 116/60 (78) 99 Room Air 05/18/23 12:32 37.0 81 18 118/60 (79) 99 Room Air 05/18/23 12:28 74 18 115/55 (75) 99 Room Air 05/18/23 12:24 81 18 112/57 (75) 99 Room Air 05/18/23 12:20 80 18 110/57 (74) 99 Room Air 05/18/23 12:15 72 18 115/56 (75) 98 Room Air 05/18/23 12:11 76 18 121/56 (77) 98 Room Air 05/18/23 12:04 70 18 106/56 (73) 97 Room Air 05/18/23 12:00 78 18 107/58 (74) 97 Room Air 05/18/23 11:56 100 18 113/58 (76) 98 Room Air 05/18/23 11:52 78 18 107/58 (74) 98 Room Air 05/18/23 11:48 88 18 107/59 (75) 96 Room Air 05/18/23 11:44 75 18 104/58 (73) 96 Room Air 05/18/23 11:40 36.9 73 18 99/56 (70) 98 Room Air 05/18/23 11:36 78 18 106/55 (72) 98 Room Air 05/18/23 11:32 60 18 81/46 (58) 94 Room Air 05/18/23 11:28 90 18 107/62 (77) 98 Room Air 05/18/23 11:24 86 18 94/50 (65) 98 Room Air 05/18/23 11:20 81 18 104/58 (73) 96 Room Air 05/18/23 11:16 87 18 90/53 (65) 94 Room Air 05/18/23 11:12 84 18 98/56 (70) 97 Room Air 05/18/23 11:08 92 18 97/54 (68) 96 Room Air 05/18/23 11:04 87 18 100/54 (69) 96 Room Air 05/18/23 11:00 82 18 94/55 (68) 98 Room Air 05/18/23 10:56 104 18 127/69 (88) 98 Room Air 05/18/23 10:52 95 18 118/59 (78) 98 Room Air 05/18/23 10:48 93 18 123/61 (81) 98 Room Air 05/18/23 10:44 36.6 90 18 120/60 (80) 99 Room Air 05/18/23 10:40 110 18 133/71 (91) 99 Room Air 05/18/23 10:36 99 18 123/68 (86) 99 Room Air 05/18/23 10:32 96 18 123/70 (87) 99 Room Air 05/18/23 10:28 101 18 125/68 (87) 99 Room Air 05/18/23 10:23 95 18 130/72 (91) 100 Room Air 05/18/23 10:18 96 18 134/70 (91) Room Air 05/18/23 10:04 85 18 110/69 (83) Room Air 05/18/23 09:47 89 18 115/66 (82) 99 Room Air 05/18/23 09:32 82 18 122/72 (89) 99 Room Air 05/18/23 09:16 88 18 128/64 (85) 99 Room Air 05/18/23 08:55 88 18 118/66 (83) 99 Room Air l I & O 05/19/23 06:59 Intake Total 7033 ml Balance 7033 ml Labs Laboratory Tests 05/19/23 05:30: White Blood Count 23.4H, Red Blood Count 3.80, Hemoglobin 12.3, Hematocrit 35, Mean Corpuscular Volume 92, Mean Corpuscular Hemoglobin 32, Mean Corpuscular Hemoglobin Concent 35, Red Cell Distribution Width 14.0, Platelet Count 203, Mean Platelet Volume 10.4, Immature Granulocyte % (Auto) 2, Neutrophils (%) (Auto) 84H, Lymphocytes (%) (Auto) 5L, Monocytes (%) (Auto) 9, Eosinophils (%) (Auto) 0, Basophils (%) (Auto) 0, Neutrophils # (Auto) 19.7H, Lymphocytes # (Auto) 1.2, Monocytes # (Auto) 2.1H, Eosinophils # (Auto) 0.0, Basophils # (Auto) 0.1, Immature Granulocyte # (Auto) 0.4H ANDER MULLEN MD May 19, 2023 08:56
[2023-05-19] MEDS ORDERED: DOCUSATE SODIUM 100 MG CAPSULE PO SCH (09:00)
[2023-05-19] MEDS ORDERED: FERROUS SULFATE 325 MG (IRON) TABLET PO SCH (09:00)
--- NOTE | 2023-05-19 09:00 | Discharge Summary ---
Diagnosis/Chief Complaint Date of Admission May 17, 2023 at 18:29 Date of Discharge 05/19/23 Admission Diagnosis Admission Diagnosis Third Trimester 39 week gestation Discharge Diagnosis Uncomplicated @ term Discharge Summary-Simple/Stand Procedures Epidural placement Discharge Physical Examination Allergies: Coded Allergies: No Known Drug Allergies (Unverified , 01/09/23) Vitals & I&Os Vital Sign - Last 12Hours Date Time Temp Pulse Resp B/P (MAP) Pulse Ox O2 Delivery O2 Flow Rate FiO2 05/19/23 02:36 37.4 95 20 138/62 (87) 97 Room Air Intake and Output 05/18/23 23:59 Intake Total 1543 ml Balance 1543 ml General Appearance: Alert, Oriented X3, No Acute Distress Respiratory: Clear to Auscultation, Normal Air Movement Cardiovascular: Regular Rate, No Murmurs Abdominal: Normal Bowel Sounds, Soft, No Tenderness, Other (fundus firm and below umbilicus) Extremities: Other (trace swelling) Neuro: Normal Speech Psych/Mental Status: Mental Status NL, Mood NL Hospital Course See final discharge diagnosis. Discussion & Recommendations 22 yo G1 now P1 delivered term female via uncomplicated Discharge Condition at discharge stable Instructions to patient/family Please see electronic discharge instructions given to patient. Discharge Medications Reviewed and agree with Discharge Medication list on patient's Discharge Instruction sheet ANDER MULLEN MD May 19, 2023 09:00
[2023-05-19] MEDS ORDERED: FERR325T24 PO (09:28)
[2023-05-19] MEDS ORDERED: IBUP-844 PO (09:28)
[2023-05-19] MEDS ORDERED: DOCU100C37 PO (09:28)
--- NOTE | 2023-05-19 09:29 | Discharge Summary ---
Discharge Inst-Women's Serv Depart Medications New, Converted or Re-Newed RX: Transmitted to Pharmacy New Medications: Docusate Sodium (Docusate Sodium) 100 Mg Capsule 100 MG PO BID, #14 CAP Ferrous Sulfate (Ferosul) 325 Mg (65 Mg Iron) Tablet 325 MG PO DAILY, #30 TAB Ibuprofen (Ibu) 600 Mg Tablet 600 MG PO Q6H, #60 TAB Continued Medications: Pnv 119/Iron Fum/Folic Acid ( 19 Tablet) 29 Mg Iron-1 Mg Tablet 1 EACH PO DAILY, TAB Discontinued Medications: Acyclovir (Acyclovir) 400 Mg Tablet 400 MG PO BID, TAB Follow Up/Instructions Goal/Follow Up: 6 weeks with [facility] Activity Activity: Activity as Tolerated Driving Instructions: You May Drive NO SMOKING: NO SMOKING Nothing Inside Vagina: No Douching, No [place], No Tampons Diet Discharge Diet: No Restrictions ANDER MULLEN MD May 19, 2023 09:29
--- NOTE | 2023-05-19 17:05 | Anesthesia-Regional Post-Op ---
Regional Patient Condition Mental Status: Alert, Oriented x3 Circulation: Same as Pre-Op Headache: Absent Sensation: Full Recovery Motor Block: Absent Post Op Complications Complications None Follow Up Care/Instructions Patient Instructions None needed. Anesthesia/Patient Condition Patient is doing well, no complaints, stable vital signs, no apparent adverse anesthesia problems. No complications reported per nursing. SIMON FOX CRNA May 19, 2023 17:05
== END 2023-05-19 11:58 | disposition home or self-care (01) | DRG 807 ==
LOC: LDRP 18:29
PROVIDERS: ADMIT Family Medicine; ATTEND Family Medicine
PROC: 10E0XZZ Delivery of Products of Conception, External Approach (ICD-10-PCS; principal; 2023-05-19)
PROC: 0KQM0ZZ Repair Perineum Muscle, Open Approach (ICD-10-PCS; 2023-05-19)
PROC: 10907ZC Drainage of Amniotic Fluid, Therapeutic from Products of Conception, Via Natural or Artificial Opening (ICD-10-PCS; 2023-05-19)
DX: O99.214 Obesity complicating childbirth (principal); Z37.0 Single live birth; Z3A.39 39 weeks gestation of pregnancy
CPT/HCPCS: 36415; 85007; 85025; 85027; 86780; 86850; 86900; 86901